=== PATIENT | male | born 1945 | race Caucasian/White ===

== ENCOUNTER 2017-09-24 10:18 | Emergency (ER) | payer OTHER ==
[~2017-09-24] VITALS: Ht 180.3 cm; Wt 81.0 kg
[2017-09-24 12:12] VITALS: BP 123/79
== END 2017-09-24 12:17 | disposition home or self-care (01) ==
LOC: EME 10:18
DX: M25.551 Pain in right hip (principal)
CPT/HCPCS: 93971; 99281; 99284

== ENCOUNTER 2017-11-22 17:33 | Emergency (ER) | payer OTHER ==
[~2017-11-22] VITALS: Ht 180.3 cm; Wt 81.1 kg
[2017-11-22 20:16] LABS: HEMATOCRIT 43.4 % (38.0-50.0); HEMOGLOBIN 15.9 G/DL (12.5-16.6); MCH 36.2 PG (29.0-34.0); MCHC 36.6 G/DL (30.0-36.0); MCV 98.9 FL (86-99); PLATELET COUNT 238 K/uL (156-360); RBC DIS.WIDTH-CV 12.9 % (11.8-14.6); RBC DIS.WIDTH-SD 47.3 % (39-53); RED BLOOD COUNT 4.39 M/uL (4.00-5.50); WHITE BLOOD COUNT 7.6 K/uL (4.1-10.2)
[2017-11-22 20:32] LABS: ALBUMIN 4.5 g/dL (3.2-4.8); CHLORIDE 103 mEq/L (99-109); POTASSIUM 4.7 mEq/L (3.7-5.4); SODIUM 141 mEq/L (136-147)
[2017-11-22 20:34] LABS: GLUCOSE 106 mg/dL (70-99); TOTAL PROTEIN 7.4 g/dL (6.4-8.3)
[2017-11-22 20:38] LABS: ALKALINE PHOSPHATASE 75 IU/L (3-129); CREATININE 0.9 mg/dL (0.6-1.3); GFR ESTIMATE (CALCULATED) > 59 mL/min/ (58.99-99999)
[2017-11-22 20:39] LABS: UREA NITROGEN (BUN) 11 mg/dL (9-23)
[2017-11-22 20:40] LABS: AST (GOT) 30 IU/L (2-34)
[2017-11-22 20:41] LABS: ALT (GPT) 31 IU/L (3-49)
[2017-11-22 20:48] LABS: SERUM ETHYL ALCOHOL < 10 mg/dL
[2017-11-22 21:28] LABS: APPEARANCE CLEAR ((CLEAR)); BILIRUBIN NEGATIVE; BLOOD NEGATIVE; COLOR YELLOW ((YELLOW)); GLUCOSE (STRIP) NEGATIVE; KETONES NEGATIVE; LEUKOCYTES NEGATIVE; NITRITE NEGATIVE; PROTEIN (STRIP) NEGATIVE; SPECIFIC GRAVITY 1.016 (1.000-1.030); UCUL ADDED? NO
[2017-11-22 23:36] VITALS: BP 152/85
== END 2017-11-22 23:38 | disposition left against medical advice (07) ==
LOC: RME 17:33 → EME 17:33 → RME 23:38
PROVIDERS: Physician Assistant Medical
DX: R42 Dizziness and giddiness (principal); Z87.891 Personal history of nicotine dependence
CPT/HCPCS: 70450; 71045; 80053; 81003; 85027; 93005; 99281; 99285; G0480; J7030